=== PATIENT | female | born 1990 | race Caucasian/White ===

== ENCOUNTER 2018-02-14 11:44 | Emergency (ER) | payer SELFPAY ==
[~2018-02-14] VITALS: Ht 160 cm; Wt 110.0 kg
[~2018-02-14 11:44] MED LIST: NAPR500; Z.0.BCPILL
[2018-02-14 12:16] VITALS: BP 138/93; PULSE 99; RESP 16; TEMP 98.2; O2SAT 95
[2018-02-14 13:39] LABS: AUTOMATED NEUTROPHIL # 7.4 TH/MM3 (1.8-7.7); BASOPHIL % 0.4 % (0.0-2.0); EOSINOPHIL # 0.1 TH/MM3 (0-0.4); EOSINOPHIL % 1.2 % (0.0-4.0); HEMOGLOBIN 12.8 GM/DL (11.6-15.3); LYMPH % 18.4 % (9.0-44.0); LYMPHOCYTE # 1.8 TH/MM3 (1.0-4.8); MEAN CELL VOLUME 92.3 FL (80.0-100.0); MEAN CORPUSCULAR HEMOGLOBIN 31.1 PG (27.0-34.0); MEAN CORPUSCULAR HGB CONC 33.7 % (32.0-36.0); MEAN PLATELET VOLUME 8.4 FL (7.0-11.0); MONO % 6.3 % (0.0-8.0); MONOCYTE # 0.6 TH/MM3 (0-0.9); NEUT % 73.7 % (16.0-70.0); PLATELET COUNT 229 TH/MM3 (150-450); RED BLOOD COUNT 4.12 MIL/MM3 (4.00-5.30); RED CELL DISTRIBUTION WIDTH 13.3 % (11.6-17.2)
[2018-02-14] MEDS ORDERED: ACETAMINOPHEN 325 MG TAB PO ONE (14:30)
--- NOTE | 2018-02-14 14:31 | PD ---
HPI Chief Complaint: Related Problem Time Seen by Provider: 14:07 Travel History International Travel<30 days: No Contact w/Intl Traveler<30days: No Traveled to known affect area: No History of Present Illness HPI 27-year-old female presents to the emergency department with concerned that she has had a miscarriage. She states she is anywhere between 3 and 6 weeks but cannot recall when her last menstrual period was. Says she has been having lower abdominal cramping and vaginal bleeding since Monday. The bleeding started out heavy, became light, and then got heavy again this morning with onset of pain and cramping, especially to the right side. Denies abnormal vaginal discharge, odor. Denies dysuria. Rates pain 8/10. Describes it as cramping and stabbing. Has tried taking Aleve, Tylenol, ibuprofen, tramadol for symptom management. No known relieving or aggravating factors. Primary care provider is in [place]. Was trying to follow-up with Dr. Douglass, OB/ [employer]. Allergies to sulfa. History of depression. Denies other significant past medical history. Has no other medical complaints. No other modifying factors or associated signs and symptoms. PFSH Past Medical History Medical History: Denies Significant Hx Tetanus Vaccination: < 5 Years ?: Social History Alcohol Use: No Tobacco Use: No Substance Use: No Allergies-Medications (Allergen,Severity, Reaction): Uncoded Allergies: SULFA (Allergy, Unknown, 02/14/18) Reported Meds & Prescriptions Reported Meds & Active Scripts Active No Active Prescriptions or Reported Medications Review of Systems Except as stated in HPI: all other systems reviewed are Neg Physical Exam Narrative GENERAL: Well-nourished, well-developed female patient, in no acute distress; afebrile SKIN: Warm and dry. HEAD: Atraumatic. Normocephalic. EYES: Pupils equal and round. No scleral icterus. No injection or drainage. ENT: Mucosa pink and moist. Airway patent. NECK: Trachea midline. CARDIOVASCULAR: Regular rate and rhythm. No murmur appreciated. RESPIRATORY: No accessory muscle use. Clear to auscultation. Breath sounds equal bilaterally. GASTROINTESTINAL: Abdomen soft, tenderness on palpation to right and mid lower pelvic region, nondistended. Hepatic and splenic margins not palpable. Bowel sounds are active 4 quadrants. Nonrigid. No rebound tenderness. No guarding. BACK: No CVA tenderness. MUSCULOSKELETAL: No obvious deformities. No clubbing. No cyanosis. No edema. NEUROLOGICAL: Awake and alert. Oriented 3. No obvious cranial nerve deficits. Motor grossly within normal limits. Normal speech. PSYCHIATRIC: Appropriate mood and affect; insight and judgment normal. Data Data Last Documented VS Vital Signs Date Time Temp Pulse Resp B/P (MAP) Pulse Ox O2 Delivery O2 Flow Rate FiO2 02/14/18 12:16 98.2 99 16 138/93 (108) 95 Orders Orders Beta Hcg (Quant/Titer) (02/14/18 12:19) Type And Screen (02/14/18 12:19) Complete Blood Count With Diff (02/14/18 12:19) Ed Urine Pregnancytest Poc (02/14/18 12:20) Urinalysis - C+S If Indicated (02/14/18 14:19) Acetaminophen (Tylenol) (02/14/18 14:30) Us Pelvis (Ques Pr/Ect)W Trans (02/14/18 ) Ed Discharge Order (02/14/18 16:28) Labs Laboratory Tests Test 02/14/18 12:45 02/14/18 14:50 White Blood Count 10.0 TH/MM3 Red Blood Count 4.12 MIL/MM3 Hemoglobin 12.8 GM/DL Hematocrit 38.0 % Mean Corpuscular Volume 92.3 FL Mean Corpuscular Hemoglobin 31.1 PG Mean Corpuscular Hemoglobin Concent 33.7 % Red Cell Distribution Width 13.3 % Platelet Count 229 TH/MM3 Mean Platelet Volume 8.4 FL Neutrophils (%) (Auto) 73.7 % Lymphocytes (%) (Auto) 18.4 % Monocytes (%) (Auto) 6.3 % Eosinophils (%) (Auto) 1.2 % Basophils (%) (Auto) 0.4 % Neutrophils # (Auto) 7.4 TH/MM3 Lymphocytes # (Auto) 1.8 TH/MM3 Monocytes # (Auto) 0.6 TH/MM3 Eosinophils # (Auto) 0.1 TH/MM3 Basophils # (Auto) 0.0 TH/MM3 CBC Comment DIFF FINAL Differential Comment Human Chorionic Gonadotropin, Quant 1236 MIU/ML Urine Color LIGHT-YELLOW Urine Turbidity CLEAR Urine pH 6.5 Urine Specific [place] 1.006 Urine Protein NEG mg/dL Urine Glucose (UA) NEG mg/dL Urine Ketones NEG mg/dL Urine Occult Blood MOD Urine Nitrite NEG Urine Bilirubin NEG Urine Urobilinogen LESS THAN 2.0 MG/DL Urine Leukocyte Esterase NEG Urine RBC 1 /hpf Urine WBC 3 /hpf Urine Squamous Epithelial Cells 4 /hpf Urine Amorphous Sediment RARE Urine Bacteria RARE /hpf Microscopic Urinalysis Comment CULT NOT INDICATED MDM Medical Decision Making Medical Screen Exam Complete: Yes Emergency Medical Condition: Yes Medical Record Reviewed: Yes Differential Diagnosis Complete miscarriage, threatened miscarriage, ectopic , vaginal bleeding Narrative Course 27-year-old female, with unknown gestation of , presents with abdominal cramping and bleeding since Monday. UPT negative at bedside. Beta hCG 1236. CBC unremarkable. Type and screen ordered. Pelvic ultrasound, Tylenol, urinalysis ordered. 1624: Pelvic ultrasound concludes: Pelvis Ultrasound 02/14/18 0000 Signed Impressions: Service Date/Time: Wednesday, February 14, 2018 14:37 - CONCLUSION: 1. No gestational sac is visualized on today's exam. The endometrial cavity is empty. There is a trace of fluid along the lower uterine segment. In a patient with positive test differential considerations include an early IUP not yet visualized versus early ectopic not yet visualized versus spontaneous . Recommend serial beta hCGs. Pedro Anthony MD Patient provided a copy of the ultrasound report. Instructed patient to return to emergency department in 48 hours for repeat pelvic ultrasound and beta hCG recheck. Instructed to follow-up with [facility]. Instructed patient to follow up with primary care provider. Patient verbalizes understanding and agreement with treatment plan. Patient is medically cleared and stable for discharge. Discussed reasons to return to the emergency department. Patient agrees with treatment plan. The patients vital signs are stable and the patient is stable for outpatient follow-up and treatment. Patient discharged home, stable and in no acute distress. Diagnosis Primary Impression: Threatened miscarriage Referrals: [facility] Primary Care Physician Patient Instructions: General Instructions, Threatened Miscarriage (ED) Departure Forms: Tests/Procedures, Work Release Enter return to work date: Feb 17, 2018 Additional Instructions: Tylenol as directed and as needed for pain Return to the emergency department in 48 hours for repeat pelvic ultrasound and beta-hCG recheck Follow-up with [facility]ACHINE [facility] Follow-up with primary care provider Return to the emergency department immediately with worsening of symptoms Med/Other Pt SpecificInfo: Prescription(s) given Scripts Hydrocodone-Acetaminophen ([place]) 5 Mg-325 Mg Tab 1 TAB PO Q4H Y for PAIN, #10 TAB 0 Refills Prov: Ann Sparks 02/14/18 Disposition: 01 DISCHARGE HOME Condition: Stable Ann Sparks Feb 14, 2018 14:31
[2018-02-14 15:25] LABS: AMORPHOUS SEDIMENT, URINE RARE; BACTERIA, URINE RARE /hpf; BILIRUBIN, URINE NEG (NEG); BLOOD, URINE MOD (NEG); GLUCOSE,URINE NEG (NEG); KETONE, URINE NEG (NEG); NITRITE,URINE NEG (NEG); PH, URINE 6.5 (5.0-8.5); SQUAMOUS EPITHELIAL CELL URINE 4 /hpf (0-5); URINE COLOR LIGHT-YELLOW (YELLW/STRAW); URINE LEUKOCYTE ESTERASE NEG (NEG)
--- NOTE | 2018-02-14 15:40 | RADRPT ---
EXAM DATE/TIME: 02/14/2018 14:37 [facility] COMPARISON: No previous studies available for comparison. INDICATIONS : Pelvic pain and bleeding. LAB(S): Beta-hC,236 MEDICAL HISTORY : . SURGICAL HISTORY : Right herniated ovarian surgery with mesh. ENCOUNTER: Initial ACUITY: 4-6 days PAIN SCORE: 8/10 LOCATION: Bilateral pelvis MEASUREMENTS: LEFT OVARY: 2.1 x 1.5 x 1.3 cm UTERUS: 7.0 x 3.7 x 3.1 cm ENDOMETRIAL STRIPE: 8 mm RIGHT OVARY: 2.4 x 3.5 x 2.9 cm FREE FLUID: No FINDINGS: UTERUS: The uterus appears to be normal in size. The endometrial cavity is empty. There appears to be a very small amount of fluid along the lower uterine segment of the cervix. No gestational sac is demonstrat ed. There is a tiny nabothian cyst on the cervix measuring 3 mm. RIGHT OVARY: Small complex cyst associated with the right ovary measuring 1.7 cm. LEFT OVARY: Left ovary not visualized. MISCELLANEOUS: No free fluid. CONCLUSION: 1. No gestational sac is visualized on today's exam. The endometrial cavity is empty. There is a trac e of fluid along the lower uterine segment. In a patient with positive test differential co nsiderations include an early IUP not yet visualized versus early ectopic not yet visualized versus s pontaneous . Recommend serial beta hCGs. Pedro Anthony MD on February 14, 2018 at 15:27 Board Certified Radiologist. This report was verified electronically.
[2018-02-14] MEDS ORDERED: NORC5TAB PO (16:38)
== END 2018-02-14 16:44 | disposition home or self-care (01) ==
LOC: MERGE 11:44 → NEPD 11:44
DX: O20.0 Threatened abortion (principal); Z3A.01 Less than 8 weeks gestation of pregnancy
CPT/HCPCS: 76700; 76817; 81001; 84702; 84703; 85025; 86850; 86900; 86901; 99284

== ENCOUNTER 2018-02-16 18:24 | Emergency (ER) | payer SELFPAY ==
[~2018-02-16] VITALS: Ht 160 cm; Wt 88.5 kg
[~2018-02-16 18:24] MED LIST changes: +NORC5TAB PO
[2018-02-16 18:30] VITALS: BP 130/81; PULSE 77; RESP 16; TEMP 97.7; O2SAT 99
--- NOTE | 2018-02-16 21:38 | PD ---
HPI Chief Complaint: Related Problem Time Seen by Provider: 21:27 Travel History International Travel<30 days: No Contact w/Intl Traveler<30days: No Traveled to known affect area: No History of Present Illness HPI 27-year-old female presents for repeat quantitative beta-hCG. She reports that she developed vaginal bleeding 6 days ago as well as crampy/sharp pain in her lower abdomen, primarily in the right side, over the past several days as well. She reports that the bleeding has been pretty heavy, she reports using approximately 4 pads a day. She was seen here on February 14 where she had a pelvic ultrasound which revealed "no gestational sac is visualized on today's exam. The endometrial cavity is empty. There is a trace of fluid along the lower uterine segment. In a patient with positive test differential considerations include an early IUP not yet visualized versus early ectopic not yet visualized versus spontaneous . Recommend serial beta hCGs." The patient had a quantitative beta-hCG of 1236. Blood type is O+. Last menstrual period is unknown. PFSH Past Medical History ?: Not Social History Alcohol Use: No Tobacco Use: No Substance Use: No Allergies-Medications (Allergen,Severity, Reaction): Uncoded Allergies: SULFA (Allergy, Unknown, 02/14/18) Reported Meds & Prescriptions Reported Meds & Active Scripts Active Hydrocodone-Acetamin 5-325 mg (Hydrocodone/Acetaminophen) 5 Mg-325 Mg Tablet 1 Tab PO Q8HR [place] (Hydrocodone-Acetaminophen) 5 Mg-325 Mg Tab 1 Tab PO Q4H PRN Review of Systems Except as stated in HPI: all other systems reviewed are Neg Physical Exam Narrative GENERAL: Well-developed well-nourished female in no acute distress SKIN: Warm and dry. HEAD: Atraumatic. Normocephalic. EYES: Pupils equal and round. No scleral icterus. No injection or drainage. ENT: No nasal bleeding or discharge. Mucous membranes pink and moist. NECK: Trachea midline. No JVD. CARDIOVASCULAR: Regular rate and rhythm. No murmur appreciated. RESPIRATORY: No accessory muscle use. Clear to auscultation. Breath sounds equal bilaterally. GASTROINTESTINAL: Abdomen soft, mild right lower quadrant tenderness without guarding. No CVA tenderness. Hepatic and splenic margins not palpable. MUSCULOSKELETAL: No obvious deformities. No clubbing. No cyanosis. No edema. NEUROLOGICAL: Awake and alert. No obvious cranial nerve deficits. Motor grossly within normal limits. Normal speech. PSYCHIATRIC: Appropriate mood and affect; insight and judgment normal. Data Data Last Documented VS Vital Signs Date Time Temp Pulse Resp B/P (MAP) Pulse Ox O2 Delivery O2 Flow Rate FiO2 02/16/18 18:30 97.7 77 16 130/81 (97) 99 Orders Orders Beta Hcg (Quant/Titer) (02/16/18 21:27) Cbc No Diff, Includes Plts (02/16/18 23:51) Acetamin-Hydrocod 325-5 Mg ([place] 5-325 (02/17/18 00:15) Ed Discharge Order (02/17/18 00:09) Labs Laboratory Tests Test 02/16/18 21:43 02/17/18 00:00 Human Chorionic Gonadotropin, Quant 1197 MIU/ML White Blood Count 9.9 TH/MM3 Red Blood Count 3.89 MIL/MM3 Hemoglobin 12.0 GM/DL Hematocrit 35.7 % Mean Corpuscular Volume 91.8 FL Mean Corpuscular Hemoglobin 30.8 PG Mean Corpuscular Hemoglobin Concent 33.6 % Red Cell Distribution Width 13.2 % Platelet Count 230 TH/MM3 Mean Platelet Volume 7.8 FL MDM Medical Decision Making Medical Screen Exam Complete: Yes Emergency Medical Condition: Yes Medical Record Reviewed: Yes Differential Diagnosis Ectopic , miscarriage, threatened , missed Narrative Course Beta-hCG today is 1197 which is trending down but not a significant amount. Initially a repeat ultrasound was ordered but the patient is declining. I discussed with the on-call hospitalist Dr. Swann he does not feel that the ultrasound will be very helpful at this point as she just had one 2 days ago. She would like a CBC be performed to make sure that the hemoglobin has not dropped a significant amount. This is most likely a miscarriage however ectopic still cannot be excluded however with the trending down beta- hCG she recommends that the patient return in 2 days for repeat quantitative beta-hCG. She would like the patient to follow-up at the [facility] [place]. Diagnosis Primary Impression: Miscarriage Referrals: [facility] Additional Instructions: As discussed, return in 2 days for repeat quantitative beta-hCG. Follow-up at the [facility] as needed. Return sooner for any acutely new or worsening symptoms such as severe sudden pain, severe hemorrhaging, syncope. Med/Other Pt SpecificInfo: Prescription(s) given Scripts Hydrocodone/Acetaminophen (Hydrocodone-Acetamin 5-325 mg) 5 Mg-325 Mg Tablet 1 TAB PO Q8HR, #10 Prov: Tere Ocampo DO 02/17/18 Disposition: 01 DISCHARGE HOME Condition: Stable Anup Duncan Feb 16, 2018 21:38
[2018-02-17 00:07] LABS: HEMATOCRIT 35.7 % (35.0-46.0); MEAN CELL VOLUME 91.8 FL (80.0-100.0); MEAN CORPUSCULAR HEMOGLOBIN 30.8 PG (27.0-34.0); MEAN CORPUSCULAR HGB CONC 33.6 % (32.0-36.0); MEAN PLATELET VOLUME 7.8 FL (7.0-11.0); PLATELET COUNT 230 TH/MM3 (150-450); RED BLOOD COUNT 3.89 MIL/MM3 (4.00-5.30); RED CELL DISTRIBUTION WIDTH 13.2 % (11.6-17.2); WHITE BLOOD COUNT 9.9 TH/MM3 (4.0-11.0)
[2018-02-17] MEDS ORDERED: HYDR-3516 PO (00:10)
[2018-02-17] MEDS ORDERED: ACETAMINOPHEN/HYDROcodone 325 MG/5 MG TAB PO ONE (00:15)
[2018-02-17 00:32] VITALS: BP 128/72
== END 2018-02-17 00:33 | disposition home or self-care (01) ==
LOC: NEPD 18:24 → MERGE 18:24 → NEPD 02-17 00:33
DX: O03.9 Complete or unspecified spontaneous abortion without complication (principal)
CPT/HCPCS: 84702; 85027; 99283

== ENCOUNTER → 2018-02-23 | Outpatient (CLI) | payer SELFPAY ==
[~2018-02-23] MED LIST changes: +HYDR-3516 PO
== END ==
LOC: CLAB 10:57
PROVIDERS: ATTEND Obstetrics & Gynecology
DX: O20.0 Threatened abortion (principal)
CPT/HCPCS: 36415; 84702